=== PATIENT | female | born 1955 | race Caucasian/White ===

== ENCOUNTER 2018-07-22 11:11 | Emergency (ER) | payer OTHER, SELFPAY ==
[2018-07-22 11:15] VITALS: BP 133/85; PULSE 64; RESP 18; TEMP 36.2; O2SAT 100
[2018-07-22 11:34] VITALS: O2SAT 100
--- NOTE | 2018-07-22 11:36 | PC.NURSE ---
CO2 detector monitor at 0.
--- NOTE | 2018-07-22 12:47 | ED.GENADULT ---
HPI - General Adult General Chief complaint: Environmental Exposure Stated complaint: POSSIBLE EXPOSURE TO CARBON MONOXID Time Seen by Provider: 07/22/18 12:34 Source: patient Mode of arrival: ambulatory Limitations: no limitations History of Present Illness HPI narrative: 62-year-old female here for evaluation of potential exposure to carbon monoxide. She states that several days ago a carbon monoxide detector in her house went off. She states that her replaced the batteries and reset it has not gone off since then. She states that her is not having any symptoms. She states that after the car monoxide went off she started to not feel very well. She does not have any specific symptoms. She states that she is sensitive to chemical exposures she states that they have had the gas company come out of her house and she reports that they were told everything was okay with regard to the gas company. She states that since this event happened she has had recurrence of some of her symptoms. Again no specific symptoms just not feeling very well. She states her is not having any symptoms. They do have pets at home and none of her pets are sick Related Data Allergies Allergy/AdvReac Type Severity Reaction Status Date / Time No Known Drug Allergies Allergy Verified 07/22/18 12:08 Review of Systems Constitutional Denies fever(s), Denies lethargy and Reports malaise Eyes Denies itchy eyes Cardiovascular Denies chest pain and Denies dyspnea Respiratory Denies dyspnea Gastrointestinal Gastrointestinal: Denies abdominal pain, Denies nausea and Denies vomiting Musculoskeletal Denies myalgias and Denies arthralgias Integumentary/Breasts Denies rash Neurologic Denies behavioral changes Psychiatric Denies behavioral changes Hematologic/Lymphatic Comments: Not on anticoagulation Allergic/Immunologic Denies urticaria and Denies itchy eyes PFSH Medical History Healthy adult (Acute) Surgical History No pertinent past surgical history (Acute) Social History Smoking Status: Never smoker Exam Initial Vital Signs Initial Vital Signs: Vital Signs Temperature 97.1 F L 07/22/18 11:15 Pulse Rate 64 07/22/18 11:15 Respiratory Rate 18 07/22/18 11:15 Blood Pressure 133/85 07/22/18 11:15 Pulse Oximetry 100 07/22/18 11:15 Const General: cooperative, healthy appearing, comfortable, well developed, well groomed and No acute distress HENMT Head: normal to inspection and normocephalic Resp Effort & Inspection: normal respiratory effort Auscultation: clear to auscultation bilaterally Cardio Rate: regular rate Pulses: radial pulses present GI Inspection: non-distended Palpation: soft, No firm and No tender Skin Lesions: no lesions Rashes: no rashes Neuro General: alert, awake and oriented x3 Cognition: normal cognition Speech: speech normal Extrem General: capillary refill normal Psych Appearance: grossly normal and well kempt Course Vital Signs - 8 hr 07/22/18 12:51 Pulse Rate 58 L Respiratory Rate 14 Blood Pressure [Left Arm] 151/79 H Pulse Oximetry 100 Medical Decision Making MDM Narrative Medical decision making narrative: Patient has a normal exam here in the emergency department. She is not tachypneic, not hypoxic, not cyanotic. The CO detector was used in triage which showed no presence of carbon monoxide patient reports no symptoms with her or the pets at home. They also have had the gas company out to the house. I feel that further workup is not warranted here in the emergency department. I did provide reassurance to the patient regarding her symptoms. She was given return precautions. She expressed understanding and agreement with plan. Discharge Plan Departure Patient Disposition: Home Clinical Impression: Normal physical exam Discharge Date/Time: 07/22/18 13:21 Interventions: ED Discharge Assessment Last Done: 07/22/18 13:21 Instructions: Preventing Carbon Monoxide Poisoning Activity Restrictions/Additional Instructions: No abnormalities were found on the workup today here in the emergency department. I do recommend that you may contact with a primary care doctor in the area. You can call the [facility] at [phone]. You can also consider [facility]. Their phone number is [phone]. There is also [facility] at [phone]. There is also [facility] at . return to the emergency department for any new or worsening symptoms
[2018-07-22 12:51] VITALS: BP 151/79; PULSE 58; RESP 14; O2SAT 100
--- NOTE | 2018-07-22 13:13 | PC.NURSE ---
pt reports that she moved up recently to [place]. she had not been feeling well x 3 weeks. reports her carbon monoxide detector went off during the night and she was concerned that it was carbon monoxide poisoning. pt has no headache and reports that she feels better.
== END 2018-07-22 13:21 | disposition home or self-care (01) ==
PROVIDERS: Emergency Provider Emergency Medicine
DX: Z71.1 Person with feared health complaint in whom no diagnosis is made (principal)
CPT/HCPCS: 99282

== ENCOUNTER → 2019-03-14 11:24 | Outpatient (CLI) | payer OTHER, SELFPAY ==
--- NOTE | 2019-03-14 | DI.MG.S_ITS ---
BILATERAL DIGITAL SCREENING MAMMOGRAM 3D/2D WITH CAD: 03/14/2019 CLINICAL: Routine screening. Comparison is made to exams dated: 08/31/2017 mammogram, 04/07/2016 mammogram, and 04/02/2015 mammogram - [facility]. There are scattered fibroglandular elements in both breasts. Current study was also evaluated with a Computer Aided Detection (CAD) system. No significant masses, calcifications, or other findings are seen in either breast. There has been no significant interval change. IMPRESSION: NEGATIVE There is no mammographic evidence of malignancy. A 1 year screening mammogram is recommended. This exam was interpreted at Station ID: [id number]. NOTE: For mammograms, a report in lay terms will be sent to the patient. Approximately 15% of breast malignancies will not be visualized mammographically. In the management of a palpable breast mass, a negative mammogram must not discourage biopsy of a clinically suspicious lesion. Electronically Signed By: Sahil skinner/abbie:03/14/2019 15:13:58 letter sent: Normal Exam ACR BI-RADS Category 1: Negative 3341F
== END ==
PROVIDERS: PCP Student in an Organized Health Care Education/Training Program; Visit Provider Student in an Organized Health Care Education/Training Program
DX: Z12.31 Encounter for screening mammogram for malignant neoplasm of breast (principal)
CPT/HCPCS: 77063; 77067

== ENCOUNTER 2019-04-05 14:43 | Emergency (ER) | payer OTHER, SELFPAY ==
[2019-04-05 14:45] VITALS: BP 120/71; PULSE 68; RESP 18; O2SAT 100
--- NOTE | 2019-04-05 15:00 | PC.NURSE ---
pulse ox/co2 monitoring reads 0.
--- NOTE | 2019-04-05 15:12 | ED_ITS ---
HPI - SOB/Dyspnea <Roya Stoner PA-C - Last Filed: 04/05/19 18:51> General Chief Complaint: Shortness of Breath/Dyspnea Stated Complaint: can't catch breathe/exp. to carbon monoxide x7days Time Seen by Provider: 04/05/19 15:10 Source: patient Mode of arrival: Ambulatory Limitations: no limitations History of Present Illness HPI Narrative: This 63-year-old female with history of carbon monoxide exposure and subsequent development of multiple chemical sensitivities comes in due to recurrent feeling of air hunger. 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 She states that she did recover from that after a detox., but subsequently developed sensitivity to many chemicals which starts with skin and vision symptoms, then gets scratchy throat, somewhat tight chest and air hunger and can progress to confusion and lightheadedness. Usually gets better with fresh air. She states that last week, they turned on her gas fireplace and she started to have similar symptoms including scratchy throat. They have left the fireplace off and dried out the house and have called for fireplace service as it has leaked in the past. She states that today, she started to feel these symptoms at work. She states there are multiple smokers at work and where she sits is right near the smoking area outside. She is unable to change her seating position. He thinks this cause symptoms as today felt very typical for the sensitivities. She states she is feeling substantially improved now with being out of the office. She states francy t nebulizer treatment was helpful. She has not had any chest pain, she denies emily dyspnea and states this is more of an air hunger sensation. She has not had any wheeze or cough. She does not have watery eyes or sneezing. She denies any new symptoms such as swelling in the extremities. Related Data Home Medications Medication Instructions Recorded Confirmed Dim Supplement 1 dose PO DAILY 04/05/19 04/05/19 Megaspore 1 dose PO DAILY 04/05/19 04/05/19 vitamin B complex 1 tab PO DAILY 04/05/19 04/05/19 Previous Rx's Medication Instructions Recorded albuterol sulfate 2 inhalation INHALATION Q4H PRN 04/05/19 #8.5 gram Allergies Allergy/AdvReac Type Severity Reaction Status Date / Time No Known Drug Allergies Allergy Verified 10/04/18 11:45 Review of Systems <Roya Stoner PA-C - Last Filed: 04/05/19 18:51> Review of Systems ROS Unobtainable: All systems reviewed & are unremarkable except as noted in HPI and below PFSH <Roya Stoner PA-C - Last Filed: 04/05/19 18:51> Medical History (Updated 04/05/19 @ 16:23 by Roya Stoner PA-C) Healthy adult (Acute) Hx of carbon monoxide poisoning (Resolved) IBS (irritable bowel syndrome) (Chronic) Multiple chemical sensitivity syndrome (Chronic) Surgical History (Updated 04/05/19 @ 16:14 by Roya Stoner PA-C) No pertinent past surgical history (Acute) S/P T&A (status post tonsillectomy and adenoidectomy) (Resolved) Social History Smoking Status: Never smoker Social History Smoking Status: Never smoker Exam <Roya Stoner PA-C - Last Filed: 04/05/19 18:51> Narrative Exam Narrative: GENERAL APPEARANCE: Patient sitting comfortably, in no distress. EYES: PERRL, EOMI. ORAL CAVITY: Normal oropharynx. THROAT: No erythema or exudate, PND noted NECK/THYROID: Neck supple, full range of motion LUNGS: Clear to auscultation bilaterally, no cough on exam. HEART: RRR without murmur, nl S1, S2, no S3 or S4. EXTREMITIES: No cyanosis, no edema, no calf tenderness DERMATOLOGIC: No exanthem NEUROLOGIC: Alert, oriented, normal speech and coordination Initial Vital Signs Initial Vital Signs: Vital Signs Pulse Rate 68 04/05/19 14:45 Respiratory Rate 18 04/05/19 14:45 Blood Pressure 120/71 04/05/19 14:45 Pulse Oximetry 100 04/05/19 14:45 <Alfonso Hoffmann DO - Last Filed: 04/06/19 17:38> Initial Vital Signs Initial Vital Signs: Vital Signs Pulse Rate 68 04/05/19 14:45 Respiratory Rate 18 04/05/19 14:45 Blood Pressure 120/71 04/05/19 14:45 Pulse Oximetry 100 04/05/19 14:45 Course <Roya Stoner PA-C - Last Filed: 04/05/19 18:51> Course Additional Information: Patient is feeling significantly improved simply after being out of her home and smoking environment for some time. She did think that nebulizer treatment was somewhat helpful as well. Given history and symptoms she describes with scratchy throat, noting PND on exam, and chest tightness, likely has some reactive airways. She does not have chest pain or emily dyspnea. She agrees to return if any acutely worsening symptoms. Encouraged to consider trial of antihistamine and follow up with PCP Orders Ordered: Discontinued Medications Albuterol (Ventolin) 2.5 mg INH NOW ONE Stop: 04/05/19 15:28 Last Admin: 04/05/19 15:31 Dose: 2.5 mg Documented by: YASEMIN Vital Signs Vital signs: Vital Signs - 8 hr 04/05/19 14:45 04/05/19 15:32 Pulse Rate 68 64 Respiratory Rate 18 12 Blood Pressure 120/71 Pulse Oximetry 100 98 <Alfonso Hoffmann DO - Last Filed: 04/06/19 17:38> Orders Ordered: Discontinued Medications Albuterol (Ventolin) 2.5 mg INH NOW ONE Stop: 04/05/19 15:28 Last Admin: 04/05/19 15:31 Dose: 2.5 mg Documented by: YASEMIN Vital Signs Vital signs: Vital Signs - 8 hr 04/05/19 14:45 04/05/19 15:32 Pulse Rate 68 64 Respiratory Rate 18 12 Blood Pressure 120/71 Pulse Oximetry 100 98 MDM - SOB/Dyspnea <Roya Stoner PA-C - Last Filed: 04/05/19 18:51> Imaging Data Chest x-ray: Radiologist's impression: [address] [address] XRay Report Signed Patient: Evelia Carballo#: [id number] : 8Acct:[id number] Age/Sex: 63 / FDate of Service: 04/05/19 Loc: ED Accession Number: [id number] Procedure: XR chest 2V Ordering Provider: Roya Stoner P.A-C PROCEDURE: XR CHEST 2V INDICATIONS: chronic dyspnea TECHNIQUE: 2 views of the chest were acquired. COMPARISON: None. FINDINGS: Surgical changes and devices: None. Lungs and pleura: Lungs are clear. No pleural effusions or pneumothorax. Mediastinum: Mediastinal contours are normal. Heart size is normal. Bones and chest wall: No suspicious bony abnormalities. Soft tissues appear unremarkable. IMPRESSION: 1. No acute cardiopulmonary disease. Dictated by: Sahil Morales M.D. on 04/05/2019 at 16:03 Approved by: Sahil Morales M.D. on 04/05/2019 at 16:03 ECG Data Attestation: I personally reviewed and interpreted this ECG as follows: (Normal sinus rhythm, rate 66, normal axis) Discharge Plan Departure Patient Disposition: Home Clinical Impression: Mild intermittent reactive airway disease Discharge Date/Time: 04/05/19 16:34 Instructions: DI for Reactive Airway Disease-Adult Activity Restrictions/Additional Instructions: I suspect that due to your chemical sensitivities and all of the smoke exposure at work you have mild reactive airways, which is inflammation in the airways that can be caused by allergic reaction, illness etc. Since the breathing treatment seemed to help, please keep an inhaler on hand in case you ever have a more severe reaction to something you are exposed to in the environment. You may also wish to try an antihistamine such as Zyrtec, once daily to see if this helps prevent the cascade of symptoms that you described. As we talked about, you should return to the ED if you have any acutely worsening symptoms again, or new symptoms such as chest pain. Please follow-up with your PCP in the next week or so to reassess and determine whether any further testing or treatment are needed. Prescriptions: New albuterol sulfate 90 mcg/actuation HFA aerosol inhaler 2 inhalation INHALATION Q4H PRN (Reason: shortness of breath) Qty: 8.5 RF: 0 No Action Dim Supplement 1 dose PO DAILY RF: 0 Megaspore 1 dose PO DAILY RF: 0 vitamin B complex 1 tab PO DAILY RF: 0 Referrals: Sarah Padilla ARNP [Primary Care Provider] -
[2019-04-05] MEDS: ALBUTEROL 2.5 MG/3 ML NEB (ADULT) INH (15:31)
[2019-04-05 15:32] VITALS: PULSE 64; RESP 12; O2SAT 98
== END 2019-04-05 16:34 | disposition home or self-care (01) ==
PROVIDERS: Emergency Provider Internal Medicine; PCP Student in an Organized Health Care Education/Training Program
DX: J45.20 Mild intermittent asthma, uncomplicated (principal); Z91.89 Other specified personal risk factors, not elsewhere classified; R06.00 Dyspnea, unspecified; R07.9 Chest pain, unspecified
CPT/HCPCS: 71046; 93005; 93041; 94640; 99283; 99284; J7613

== ENCOUNTER → 2021-03-19 16:33 | Outpatient (CLI) | payer OTHER, SELFPAY ==
--- NOTE | 2021-03-19 16:35 | DI.MG.S_ITS ---
BILATERAL DIGITAL SCREENING MAMMOGRAM 3D/2D WITH CAD: 03/19/2021 CLINICAL: Routine screening. Comparison is made to exams dated: 03/14/2019 mammogram - [facility], 08/31/2017 mammogram, and 04/07/2016 mammogram - [facility]. The tissue of both breasts is heterogeneously dense. This may lower the sensitivity of mammography. Current study was also evaluated with a Computer Aided Detection (CAD) system. No significant masses, calcifications, or other findings are seen in either breast. There has been no significant interval change. IMPRESSION: NEGATIVE There is no mammographic evidence of malignancy. A 1 year screening mammogram is recommended. This exam was interpreted at Station ID: [id number]. NOTE: For mammograms, a report in lay terms will be sent to the patient. Approximately 15% of breast malignancies will not be visualized mammographically. In the management of a palpable breast mass, a negative mammogram must not discourage biopsy of a clinically suspicious lesion. Electronically Signed By: Sahil skinner/abbie:03/20/2021 08:48:03 letter sent: Normal Exam ACR BI-RADS Category 1: Negative 3341F
== END ==
PROVIDERS: PCP Student in an Organized Health Care Education/Training Program; Referring Provider Student in an Organized Health Care Education/Training Program; Visit Provider Student in an Organized Health Care Education/Training Program
DX: Z12.31 Encounter for screening mammogram for malignant neoplasm of breast (principal)
CPT/HCPCS: 77063; 77067

== ENCOUNTER → 2022-05-19 11:30 | Outpatient (CLI) | payer OTHER, SELFPAY ==
--- NOTE | 2022-05-19 | DI.MG.S_ITS ---
BILATERAL DIGITAL SCREENING MAMMOGRAM 3D/2D WITH CAD: 05/19/2022 CLINICAL: Routine screening. Comparison is made to exams dated: 03/19/2021 mammogram, 03/14/[address] - [facility], and 08/31/2017 mammogram - [facility]. Both breasts are almost entirely fatty (category a/<25% glandular tissue). Current study was also evaluated with a Computer Aided Detection (CAD) system. No significant masses, calcifications, or other findings are seen in either breast. There has been no significant interval change. IMPRESSION: NEGATIVE There is no mammographic evidence of malignancy. A 1 year screening mammogram is recommended. Based on the Tyrer Cuzick model (a risk assessment model) the patient's lifetime risk is 3.6% and her 10 year risk is 1.7%. According to the ACR, ACS, and NCCN guidelines, an annual breast MRI exam along with mammogram is recommended if the patient's lifetime risk is 20% or greater. This exam was interpreted at Station ID: [id number]. NOTE: For mammograms, a report in lay terms will be sent to the patient. Approximately 15% of breast malignancies will not be visualized mammographically. In the management of a palpable breast mass, a negative mammogram must not discourage biopsy of a clinically suspicious lesion. Electronically Signed By: Noe cruz/abbie:05/19/2022 12:46:04 letter sent: Normal Exam ACR BI-RADS Category 1: Negative 3341F
== END ==
PROVIDERS: PCP Student in an Organized Health Care Education/Training Program; Referring Provider Student in an Organized Health Care Education/Training Program; Visit Provider Student in an Organized Health Care Education/Training Program
DX: Z12.31 Encounter for screening mammogram for malignant neoplasm of breast (principal)
CPT/HCPCS: 77063; 77067

== ENCOUNTER → 2023-04-03 10:40 | Outpatient (CLI) | payer MEDICARE, OTHER, SELFPAY ==
--- NOTE | 2023-04-03 | DI.RAD.S_ITS ---
Bone Density Report Name: BECKI SWARTZ Age: 67 Sex: Female Ethnicity: White Date of : 1955 Indication: postmenopausal; screening for osteoporosis; Referring Provider: TRACEY MEDEIROS Study: Bone densitometry was performed. Exam Date: April 03, 2023 Accession number: [id number] Bone Density: Region BMD T-score Z-score Classification AP Spine(L1-L4) 1.151 0.9 2.7 Normal Femoral Neck (Left) 0.750 -0.9 0.6 Normal Total Hip (Left) 0.953 0.1 1.3 Normal Femoral Neck (Right) 0.668 -1.6 -0.1 Osteopenia Total Hip (Right) 0.901 -0.3 0.9 Normal Total Hip Mean 0.927 -0.1 1.1 Normal World Health Organization criteria for BMD impression classify patients as: Normal (T-score at or above -1.0), Osteopenia (T-score between -1.0 and -2.5), or Osteoporosis (T-score at or below -2.5). 10-year Fracture Risk(1): Major Osteoporotic Fracture 9.1% Hip Fracture 1.0% Reported Risk Factors: [place] (), Neck BMD=0.668, BMI=29.7 (1) FRAX(R) Version 3.08. Fracture probability calculated for an untreated patient. Fracture probability may be lower if the patient has received treatment. Impression: The patient has low bone mass, based on the Right Femoral Neck T-score. The patient has an estimated ten-year risk of hip fracture of 1% and an estimated ten-year risk of major fracture of 9.1%, based on the WHO FRAX algorithm. Discussion: BONE DENSITY IS LOW AT ONE OR MORE SKELETAL SITES. This patient's lowest T-score is low at one or more skeletal sites. It meets the World Health Organization's (WHO) criteria for low bone mass (T-score between -1.0 and -2.5). The patient's 10-year risk of fracture as calculated by FRAX is less than the threshold where pharmacological therapy is recommended by the National Osteoporosis Foundation (NOF). However, all treatment decisions require clinical judgment and consideration of individual patient factors, including patient preferences, comorbidities, previous drug use, risk factors not captured in the FRAX model (e.g., frailty, falls, vitamin D deficiency, increased bone turnover, interval significant decline in bone density) and possible under or overestimation of fracture risk by FRAX. The patient should follow a healthful lifestyle (good nutrition with adequate calcium and vitamin D, and appropriate weight-bearing exercise). Follow-Up: Consider repeating this study in 2 to 3 years to reassess this patient's status, or sooner if there is some new clinical indication. Reported by: WILFREDO HARDY M.D. on 04/03/2023 11:44:00 AM.
--- NOTE | 2023-04-03 | DI.RAD.S_ITS ---
PROCEDURE: XR ABDOMEN 1V INDICATIONS: IBS TECHNIQUE: One view of the abdomen acquired. COMPARISON: None. FINDINGS: Surgical changes and devices: None. Bowel: Bowel gas pattern is normal. Soft tissues: No suspicious abdominal calcifications. Visualized solid organ contours appear normal in size. Bones: No suspicious bony lesions. IMPRESSION: Normal bowel gas pattern. If symptoms persist with conservative management, consider cross-sectional imaging such as CT or MRI. Dictated by: Tin Dennis [facility] Interpreted: Matthias Kathleen MD on 04/03/2023 at 12:23 Transcribed by: LASHON on 04/03/2023 at 12:23 Approved by: Madhu Kathleen M.D. on 04/06/2023 at 14:51
== END ==
PROVIDERS: PCP Student in an Organized Health Care Education/Training Program; Referring Provider Student in an Organized Health Care Education/Training Program; Visit Provider Student in an Organized Health Care Education/Training Program
DX: Z78.0 Asymptomatic menopausal state (principal); Z00.00 Encounter for general adult medical examination without abnormal findings; K58.1 Irritable bowel syndrome with constipation; M54.50 Low back pain, unspecified; G89.29 Other chronic pain; M85.851 Other specified disorders of bone density and structure, right thigh
CPT/HCPCS: 74018; 77080

== ENCOUNTER → 2024-06-13 08:00 | Outpatient (CLI) | payer MEDICARE, OTHER, SELFPAY ==
--- NOTE | 2024-06-13 08:02 | DI.MG.S_ITS ---
BILATERAL DIGITAL SCREENING MAMMOGRAM 3D/2D WITH CAD: 06/13/2024 CLINICAL: Routine screening. Comparison is made to exams dated: 05/19/2022 mammogram, 03/19/2021 mammogram, and 03/14/2019 mammogram - [facility]. The breasts are almost entirely fatty (category a/<25% glandular tissue). Current study was also evaluated with a Computer Aided Detection (CAD) system. No significant masses, calcifications, or other findings are seen in either breast. There has been no significant interval change. IMPRESSION: NEGATIVE There is no mammographic evidence of malignancy. A 1 year screening mammogram is recommended. Based on the Tyrer Cuzick model (a risk assessment model) the patient's lifetime risk is 3.3% and her 10 year risk is 1.7%. According to the ACR, ACS, and NCCN guidelines, an annual breast MRI exam along with mammogram is recommended if the patient's lifetime risk is 20% or greater. This exam was interpreted at Station ID: [id number]. NOTE: For mammograms, a report in lay terms will be sent to the patient. Approximately 15% of breast malignancies will not be visualized mammographically. In the management of a palpable breast mass, a negative mammogram must not discourage biopsy of a clinically suspicious lesion. Electronically Signed By: Miller berry/abbie:06/13/2024 12:05:42 letter sent: Normal Exam ACR BI-RADS Category 1: Negative
== END ==
PROVIDERS: PCP Family Medicine; Referring Provider Family Medicine; Visit Provider Family Medicine
DX: Z12.31 Encounter for screening mammogram for malignant neoplasm of breast (principal); R92.313 Mammographic fatty tissue density, bilateral breasts
CPT/HCPCS: 77063; 77067

== ENCOUNTER → 2024-07-01 08:49 | Outpatient (CLI) | payer MEDICARE, OTHER, SELFPAY ==
--- NOTE | 2024-07-01 08:51 | DI.US.S_ITS ---
PROCEDURE: US PELVIC COMPLETE INDICATIONS: THICKENED ENDOMETRIUM TECHNIQUE: Real-time scanning was performed of the pelvic organs, with image documentation. Additional endovaginal scanning was necessary due to incomplete visualization of the adnexal and endometrial structures by transabdominal scanning. COMPARISON: Priors requested, not available FINDINGS: Uterus: 8.1 x 5.8 x 2.6 cm. Retroverted positioning. Endometrium including the fluid measures 6-7 mm. The fluid itself measures 4 mm so the combined endometrial thickness is 3 mm. Dystrophic calcification in the posterior myometrium measures 5 x 5 mm. Possible focal solid component within the endometrium measures 6 x 7 mm. Scattered fibroids, mostly intramural, largest in the left anterior position measuring 1.2 x 1.4 cm. There are nabothian cysts. Ovaries: Nonenlarged bilaterally. Other: No pathologic free fluid. IMPRESSION: Fluid within the endometrium, with combined endometrial thickness less than 5 mm. Possible focal endometrial debris versus a small lesion measures 6 x 7 mm. consider further follow-up or sampling depending on clinical context. Uterine fibroids. Possible myometrial calcification representing calcified fibroid. Retroverted uterus. Dictated by: Anup Dwyer M.D. on 07/07/2024 at 10:59 Approved by: Anup Dwyer M.D. on 07/07/2024 at 11:02
== END ==
LOC: US 08:49
PROVIDERS: PCP Family Medicine; Referring Provider Family Medicine; Visit Provider Family Medicine
DX: D25.1 Intramural leiomyoma of uterus (principal); R93.89 Abnormal findings on diagnostic imaging of other specified body structures; N85.4 Malposition of uterus
CPT/HCPCS: 76830; 76856

== ENCOUNTER 2024-08-12 06:22 | Day surgery (SDC) | payer MEDICARE, OTHER, SELFPAY ==
[2024-08-05 12:52] VITALS: BMI 30.3
--- NOTE | 2024-08-12 | PATH_ITS ---
[facility] Accession Number: [id number] No. of containers..01 Tissue . 01 Material submitted: . endometrium - ENDOMETRIAL CONTENTS . 01 Diagnosis: ENDOMETRIUM, BIOPSY: Features consistent with endometrial polyp. Negative for atypical hyperplasia or malignancy. [facility] 08/15/2024 1139 Local . 01 Electronically signed: . Kenn Hernandes MD, PhD, Pathologist NPI- [id number] . 01 Gross description: . Received in formalin, labeled with two patient identifiers and endometrial contents, are multiple pantoja soft tissue fragments aggregating to 2.5 x 1.6 x 0.4 cm. Filtered and submitted in cassette A1. ([id number]) /FRR 08/13/2024 1109 Local . 01 Pathologist provided ICD-10: R93.89 . 01 CPT . 506000 Specimen Comment: A courtesy copy of this report has been sent to [facility] Performed at: [address] [address], [place], [place] [id number] MD Sahil Rojas MD Phone: [phone]
[2024-08-12] MEDS: ACETAMINOPHEN 325 MG TABLET 975 MG PO (06:50)
[2024-08-12] MEDS: LACTATED RINGERS 1,000 ML 84 ML IV (06:54)
[2024-08-12 06:57] VITALS: BP 129/85; PULSE 79; RESP 16; TEMP 36.4; O2SAT 98; BMI 30.3
--- NOTE | 2024-08-12 07:08 | PM.PREOP ---
Pre-operative Note Interval Note History & Physical reviewed/Exam performed by Physician: Yes Changes to H&P: No H&P completed within 30 days and has changed as indicated here:: 08/03/24 ASA Class (for procedural sedation): II
--- NOTE | 2024-08-12 07:55 | SUR.OPER ---
0755 straight cath'd for 125cc clear yellow urine
--- NOTE | 2024-08-12 08:10 | SUR.OPER ---
DEFICIT 125
--- NOTE | 2024-08-12 08:19 | PM.OP.1 ---
Operative Date/Time/Diagnoses Date of procedure: 08/12/24 Time of procedure: 08:19 Pre-op diagnosis: AUB, abnormal pelvic US Post-op diagnosis: other (endometrial polyps) Procedure & Clinicians Procedure: hysteroscopy, myosure polypectomy, dilation and curettage Same procedure as scheduled: Yes Indications: Abnormal pelvic US, AUB/PMB Surgeon: Tanvi Talley Click Yes if Unassisted: Yes Anesthesia Type: General Operative Notes Findings: normal external female genitalia stenotic, atrophic cervix 3 narrow based endometrial polyps bilateral ostia visualized Specimen(s): other (endometrial contents ) Estimated Blood Loss (mL): 5 Blood products transfused: none Procedure in detail: Pt was taken to the operating room, transferred to OR table and anesthesia was induced with placement of LMA.? Pt had her legs placed in Valerio stirrups and an exam under anesthesia was performed. The patient was prepped and draped in a sterile fashion.? A time out was performed. ?The bladder was emptied via straight catheter in sterile fashion.? A sterile speculum was inserted into the vagina.? The cervix was visualized and grasped anteriorly using a single tooth tenaculum.? The uterus sounded to 7 cm and the cervical os was serially dilated using Del Cid dilators up to 17f to allow for passage of the hysteroscope.? The 5mm 0 degree hysteroscope was then inserted into the uterus with findings as noted.? The small Myosure device was introduced and the endometrium including visualized pathology was fractionally resected under direct visualization. The hysteroscope was removed and the uterus was sharply curetted until a gritty texture was noted throughout.? The tenaculum was removed and hemostasis was noted at insertion sites after brief application of silver nitrate.? The speculum was removed and hemostasis was again noted to be excellent.? The patient then had her legs taken out of stirrups.? The patient tolerated the procedure well and without difficulty.? The patient was awakened from anesthesia and taken to PACU in stable condition. ? Complications: none Post-operative Condition: stable Disposition: PACU Plan for aftercare: anticipate dc to home pending routine postoperative recovery
[2024-08-12 08:24] VITALS: BP 125/74; PULSE 53; RESP 16; TEMP 36.8; O2SAT 98
[2024-08-12 08:32] VITALS: BP 125/74; PULSE 61; RESP 16; O2SAT 98
[2024-08-12 08:42] VITALS: BP 118/78; PULSE 58; RESP 16; O2SAT 98
== END 2024-08-12 09:07 | disposition home or self-care (01) ==
PROVIDERS: PCP Family Medicine; Referring Provider Obstetrics & Gynecology; Visit Provider Obstetrics & Gynecology
PROC: 0UDB8ZZ Extraction of Endometrium, Via Natural or Artificial Opening Endoscopic (ICD-10-PCS; CPT 58558; principal; 2024-08-12 07:45)
DX: R93.89 Abnormal findings on diagnostic imaging of other specified body structures (principal); N84.0 Polyp of corpus uteri
CPT/HCPCS: 58558; J1100; J1885; J2250; J2405; J2704; J3010